=== PATIENT | female | born 1955 | race Caucasian/White ===

== ENCOUNTER 2017-10-15 13:33 | Emergency (ER) | payer OTHER ==
[~2017-10-15] VITALS: Ht 172.7 cm; Wt 74.8 kg
[2017-10-15] MEDS ORDERED: FLUO10 PO (13:51)
[2017-10-15] MEDS ORDERED: ARIP10 PO (13:51)
== END 2017-10-15 14:51 | disposition home or self-care (01) ==
LOC: ER 13:33
DX: M79.601 Pain in right arm (principal); Z88.8 Allergy status to other drugs, medicaments and biological substances; Z79.899 Other long term (current) drug therapy
CPT/HCPCS: 96372; 99283; J1885